=== PATIENT | male | born 1955 | race Caucasian/White ===

== ENCOUNTER 2023-11-14 10:23 | Emergency (ER) | payer MEDICARE ==
[~2023-11-14] VITALS: Ht 170.2 cm; Wt 86.2 kg
[~2023-11-14 10:23] MED LIST: FLOMAX0.4 MG PO; MIRALAX17 GM PO
[2023-11-14] MEDS ORDERED: LEVOTHYROXINE112 M18 PO (10:29)
[2023-11-14] MEDS ORDERED: GLIP5ER PO (10:29)
[2023-11-14] MEDS ORDERED: ZESTRIL40 M1 PO (10:29)
[2023-11-14] MEDS ORDERED: HYDROcodone 5-APAP 325 TAB PO ONE (10:30)
[2023-11-14] MEDS ORDERED: PRILOSEC OTC20 MG PO (10:30)
[2023-11-14] MEDS ORDERED: ASPIR 8181 M1 PO (10:30)
[2023-11-14] MEDS ORDERED: HYDR1TAB94 PO (10:54)
[2023-11-14] MEDS ORDERED: IBUP800 PO (10:54)
== END 2023-11-14 11:15 | disposition home or self-care (01) ==
LOC: ER 10:23
DX: M77.12 Lateral epicondylitis, left elbow (principal); Z79.899 Other long term (current) drug therapy; Z79.82 Long term (current) use of aspirin; E11.9 Type 2 diabetes mellitus without complications; I10 Essential (primary) hypertension; E03.9 Hypothyroidism, unspecified; K21.9 Gastro-esophageal reflux disease without esophagitis
CPT/HCPCS: 73080; 99283-25; A9270

== ENCOUNTER 2024-06-03 03:17 | Emergency (ER) | payer MEDICARE ==
[~2024-06-03] VITALS: Ht 170.2 cm; Wt 95.2 kg
[~2024-06-03 03:17] MED LIST changes: +ASPIR 8181 M1 PO; +GLIP5ER PO; +HYDR1TAB94 PO; +IBUP800 PO; +LEVOTHYROXINE112 M18 PO; +PRILOSEC OTC20 MG PO; +ZESTRIL40 M1 PO
[2024-06-03] MEDS ORDERED: Ondansetron HCl 2 MG / ML 2ML Vial IV PRN (03:45)
[2024-06-03 03:52] LABS: BASOPHILS ABSOLUTE AUTO 0.06 K/mm3 (0.00-0.23); BASOPHILS PERCENT AUTO 1 % (0-2); EOSINOPHILS ABSOLUTE AUTO 0.11 K/mm3 (0.00-0.68); EOSINOPHILS PERCENT AUTO 2 % (0-6); Hematocrit 43.6 % (37.0-53.0); Hemoglobin 14.7 g/dL (13.5-17.5); IMMATURE GRAN ABSOLUTE AUTO 0.02 K/mm3 (0.00-0.10); IMMATURE GRAN PERCENT AUTO 0 % (0-1); LYMPHOCYTES ABSOLUTE AUTO 2.21 K/mm3 (0.84-5.20); LYMPHOCYTES PERCENT AUTO 41 % (21-46); MONOCYTES ABSOLUTE AUTO 0.46 K/mm3 (0.16-1.47); MONOCYTES PERCENT AUTO 9 % (4-13); Mean Corpuscular HGB 29.2 pg (26.0-34.0); Mean Corpuscular HGB Conc 33.7 g/dL (31.5-36.5); Mean Corpuscular Volume 87 fL (80-100); Mean Platelet Volume 10.3 fL (9.1-12.4); NEUTROPHILS ABSOLUTE AUTO 2.54 K/mm3 (1.96-9.15); NEUTROPHILS PERCENT AUTO 47 % (41-73); Platelet Count 271 K/mm3 (150-400); RDW Coefficient Variation 12.9 % (11.7-14.2); RDW Standard Deviation 40.7 fL (35.1-46.3); Red Blood Cell Count 5.03 M/mm3 (4.30-5.90)
[2024-06-03 04:10] LABS: Albumin, Blood 3.6 g/dL (3.4-5.0); Albumin/Globulin Ratio 0.9 (0.8-1.8); Bilirubin, Total 0.4 mg/dL (0.1-1.0); Bun/Creatinine Ratio 16.8 (12.0-20.0); Creatinine, Blood 1.01 mg/dL (0.60-1.20); Globulin, Blood 3.8 g/dL (2.2-4.0); Potassium, Blood 3.5 mmol/L (3.5-5.5); Total Protein, Blood 7.4 g/dL (6.4-8.2)
[2024-06-03 05:43] LABS: Thyroid Stimulating Hormone 16.8 uIU/mL (0.360-4.800)
[2024-06-03 07:22] LABS: International Normalized Ratio 0.99; Prothrombin Time Results 10.6 Sec (9.7-11.5)
[2024-06-03] MEDS ORDERED: ALMACONE SUSPE355 ML PO (08:52)
[2024-06-03] MEDS ORDERED: FAMO20 PO (08:52)
== END 2024-06-03 09:08 | disposition home or self-care (01) ==
LOC: ER 03:17
PROVIDERS: Emergency Medicine
DX: R07.2 Precordial pain (principal); K21.9 Gastro-esophageal reflux disease without esophagitis; E03.9 Hypothyroidism, unspecified; I10 Essential (primary) hypertension; E11.9 Type 2 diabetes mellitus without complications; Z79.82 Long term (current) use of aspirin; Z79.899 Other long term (current) drug therapy
CPT/HCPCS: 71046; 71260; 80053; 83690; 83880; 84443; 84484; 85025; 85610; 85730; 93005; 93010; 93971; 99284-25; Q9967